=== PATIENT | female | born 1980 | race Caucasian/White ===

== ENCOUNTER 2017-07-19 13:58 | Emergency (ER) | payer SELFPAY ==
[~2017-07-19 13:58] MED LIST: FRS325T PO; HYDR1TAB8 PO; PREN1TAB71 PO
--- OUTSIDE RECORDS SUMMARY | 2017-07-22 12:34 | XMS REPORT ---
Author Author PENELOPE FOSTER Organization [employer] Address Unknown Phone Unavailable Care Team Providers Care Fire Alarm Technician Name Role Phone PENELOPE FOSTER CP Unavailable Allergies, Adverse Reactions, Alerts Substance Reaction Event Type N.K.D.A. Info Not Available Non Drug Allergy Problems Problem Type Condition Code Onset Dates Condition Status Assessment Constipation, unspecified constipation type K59.00 Active Problem Left lower quadrant pain R10.32 Active Medications Medication Code System Code Instructions Start Date End Date Status Dosage Flonase [facility] [address]-17 50 MCG/ACT Nasally 2 times a day May 14, 2015 1 spray in each nostril Phentermine HCl [facility] [address]-05 37.5 MG Orally 2 times a day 1 tablet in AM, 1/2 tab in afternoon Procedures Procedure Coding System Code Date Office Visit, Est Pt., Level 3 CPT-4 17391 Jun 11, 2015 Vital Signs Date/Time: Jun 11, 2015 Temperature 99 F Weight 148 lbs Height 63 in BMI 26.21 Index Blood Pressure Diastolic 84 mmHg Blood Pressure Systolic 120 mmHg Cardiac Monitoring Heart Rate 76 bpm Results No Known Results Summary Purpose [employer] Submission
--- OUTSIDE RECORDS SUMMARY | 2017-07-22 12:34 | XMS REPORT ---
Author MEGAN Tang [facility] [employer] Address Unknown Phone Unavailable Care Team Providers Care Air Saw Operator Name Role Phone MEGAN AYALA CP Unavailable Allergies No Known Allergies Problems Problem Type Condition Code Onset Dates Condition Status Problem Left lower quadrant pain R10.32 Active Medications No Known Medications Results No Known Results Summary Purpose [employer] Submission
--- OUTSIDE RECORDS SUMMARY | 2017-07-22 12:34 | XMS REPORT ---
Author Author PENELOPE FOSTER Organization [employer] Address Unknown Phone Unavailable Care Team Providers Care Highway Engineering Technician Name Role Phone PENELOPE FOSTER CP Unavailable Allergies No Known Allergies Problems Problem Type Condition Code Onset Dates Condition Status Problem Left lower quadrant pain R10.32 Active Medications No Known Medications Results No Known Results Summary Purpose [employer] Submission
--- OUTSIDE RECORDS SUMMARY | 2017-07-22 12:34 | XMS REPORT ---
Author Author ANGELIA WOOD [facility] [employer] Address Unknown Phone Unavailable Care Team Providers Care Imaging Account Manager Name Role Phone ANGELIA WOOD CP Unavailable Allergies, Adverse Reactions, Alerts Substance Reaction Event Type N.K.D.A. Info Not Available Non Drug Allergy Problems Problem Type Condition Code Onset Dates Condition Status Assessment Post-nasal drip R09.82 Active Assessment Allergic rhinitis J30.9 Active Assessment Coughing R05 Active Medications Medication Code System Code Instructions Start Date End Date Status Dosage Tessalon Perles [facility] [address]-34 100 MG Orally Three times a day May 14, 2015 May 19, 2015 1 capsule as needed Flonase [facility] [address]-42 50 MCG/ACT Nasally 2 times a day May 14, 2015 1 spray in each nostril Procedures Procedure Coding System Code Date Office Visit, New Pt., Level 3 CPT-4 02212 May 14, 2015 Vital Signs Date/Time: May 14, 2015 Temperature 99.3 F Weight 152.1 lbs Height 63 in BMI 26.94 Index Blood Pressure Diastolic 64 mmHg Blood Pressure Systolic 120 mmHg Cardiac Monitoring Heart Rate 68 bpm Results No Known Results Summary Purpose [employer] Submission
--- OUTSIDE RECORDS SUMMARY | 2017-07-22 12:34 | XMS REPORT ---
Author Author PENELOPE FOSTER Organization [employer] Address Unknown Phone Unavailable Care Team Providers Care Underwriting Technician Name Role Phone PENELOPE FOSTER CP Unavailable Allergies, Adverse Reactions, Alerts Substance Reaction Event Type N.K.D.A. Info Not Available Non Drug Allergy Problems Problem Type Condition Code Onset Dates Condition Status Assessment Left lower quadrant pain R10.32 Active Problem Left lower quadrant pain R10.32 Active Medications Medication Code System Code Instructions Start Date End Date Status Dosage Flonase [facility] [address]-24 50 MCG/ACT Nasally 2 times a day May 14, 2015 1 spray in each nostril Phentermine HCl [facility] [address]-40 37.5 MG Orally 2 times a day 1 tablet in AM, 1/2 tab in afternoon Procedures Procedure Coding System Code Date URINALYSIS, AUTO, W/O SCOPE CPT-4 59784 Jun 10, 2015 Office Visit, Est Pt., Level 3 CPT-4 19289 Jun 10, 2015 Vital Signs Date/Time: Jun 10, 2015 Temperature 99.7 F Weight 148.4 lbs Height 63 in BMI 26.29 Index Blood Pressure Diastolic 88 mmHg Blood Pressure Systolic 128 mmHg Cardiac Monitoring Heart Rate 84 bpm Results Name Result Date Reference Range Unit Abnormality Flag UA LONG DIP (IN HOUSE) ----pH 7.0 20150610 ----BLO trace-lysed 20150610 ----SG 1.015 20150610 ----KET neg [id number] ----KEMAL neg [id number] ----URO 1.0 20150610 ----Protein 1+ 20150610 ----ABHIJIT 1+ 20150610 ----NIT neg [id number] ----Clarity cloudy 20150610 ----Color clear 20150610 ----Odor no 20150610 ----GLU neg [id number] Summary Purpose [employer]ClinicalWorks Submission
== END 2017-07-19 14:46 | disposition left against medical advice (07) ==
LOC: EDUNIT# 13:58 → ER 14:00
DX: M54.2 Cervicalgia (principal)